=== PATIENT | female | born 1940 | race Hispanic/Latino ===

== ENCOUNTER 2022-12-19 10:04 | Outpatient (CLI) | payer MEDICARE | END 2022-12-19 10:05 | disposition home or self-care (01) | LOC: BICMAMMO 10:04 | PROVIDERS: ATTEND Family Medicine | DX: Z12.31 Encounter for screening mammogram for malignant neoplasm of breast (principal); M85.89 Other specified disorders of bone density and structure, multiple sites; N95.9 Unspecified menopausal and perimenopausal disorder | CPT/HCPCS: 77063; 77067; 77080 ==

== ENCOUNTER 2024-01-20 06:45 | Day surgery (SDC) | payer MEDICARE ==
[2024-01-17 08:41] VITALS: BMI 30.7
[2024-01-20] MEDS ORDERED: Gentamicin 80 MG/2 ML VIAL ONE (06:56)
[2024-01-20] MEDS ORDERED: CEFAZOLIN 2 GM VIAL ONE (06:57)
[2024-01-20] MEDS ORDERED: Lidocaine 1% PF 5 ML VIAL ONE (08:40)
[2024-01-20] MEDS ORDERED: PHENYLEPHRINE-NS 100 MCG/ML 10 ML SYRINGE ONE (08:40)
[2024-01-20] MEDS ORDERED: PROPOFOL 200 MG/20 ML VIAL ONE (08:40)
[2024-01-20] MEDS ORDERED: fentaNYL 50 mcg/mL 1 mL Vial ONE ×3 (08:42→11:24)
[2024-01-20] MEDS ORDERED: Dexamethasone 4 mg/ml Vial ONE (08:42)
[2024-01-20] MEDS ORDERED: Ondansetron PF 4 MG/2 ML Vial ONE (08:42)
[2024-01-20] MEDS ORDERED: Ketorolac Tromethamine 30 MG (1 mL) VIAL ONE (13:35)
== END 2024-01-20 14:30 | disposition home or self-care (01) ==
LOC: SDC 06:45
PROVIDERS: ATTEND Internal Medicine Cardiovascular Disease
PROC: 0JH606Z Insertion of Pacemaker, Dual Chamber into Chest Subcutaneous Tissue and Fascia, Open Approach (ICD-10-PCS; principal; 2024-01-20)
PROC: 02HL3JZ Insertion of Pacemaker Lead into Left Ventricle, Percutaneous Approach (ICD-10-PCS; 2024-01-20)
PROC: 02H63JZ Insertion of Pacemaker Lead into Right Atrium, Percutaneous Approach (ICD-10-PCS; 2024-01-20)
DX: I44.7 Left bundle-branch block, unspecified (principal); I50.22 Chronic systolic (congestive) heart failure; I42.9 Cardiomyopathy, unspecified
CPT/HCPCS: 33208; 33225; 71045; 93005; C1769; C1898 ×2; C1900; C2621; J1100; J1580; J1885; J2405; J3010; 93010; J2704

== ENCOUNTER 2024-04-08 08:46 | Outpatient (CLI) | payer MEDICARE | END 2024-04-08 08:47 | disposition home or self-care (01) | LOC: BICMAMMO 08:46 | PROVIDERS: ATTEND Family Medicine | DX: Z12.31 Encounter for screening mammogram for malignant neoplasm of breast (principal) | CPT/HCPCS: 77063; 77067 ==